=== PATIENT | male | born 1960 | race Caucasian/White ===

== ENCOUNTER 2017-03-19 20:21 | Emergency (ER) | payer OTHER ==
[~2017-03-19] VITALS: Ht 177.8 cm; Wt 63.5 kg
[~2017-03-19 20:21] MED LIST: ATOR20TA50; CARI-277; LORA-655; MIRT30TA; NOR10T; QUET300T14; TRAZ100T2; TRIA25TA3
[2017-03-19 21:02] LABS: Basophils # (auto) 0 uL; Basophils % (auto) 0.7 % (0.0-2.0); Eosinophils # (auto) 0.1 uL; Eosinophils % (auto) 1.6 % (0.0-7.0); Hematocrit 28.4 % (41.0-53.0); Lymphocytes # (auto) 1.3 uL; Lymphocytes % (auto) 21.2 % (10.0-50.0); Mean Corpuscular Hemoglobin 27.9 pg (28.0-32.0); Mean Corpuscular Hgb Conc. 31.7 g/dL (32.0-36.0); Mean Platelet Volume 7.4 fL (6.9-10.8); Monocytes # (auto) 0.4 uL; Monocytes % (auto) 6.6 % (0.0-12.0); Neutrophils # (auto) 4.1 uL; Neutrophils % (auto) 69.9 % (37.0-80.0); Platelet Count (auto) 272 10^3/uL (140-450); Red Cell Distribution Width 19.6 % (11.8-14.3); White Blood Cell 5.9 10^3/uL (4.4-10.8)
[2017-03-19 21:16] LABS: Urine Bilirubin Negative (Negative); Urine Blood 3+ /uL (Negative); Urine Color Red (Yellow); Urine Glucose Normal (Normal); Urine Ketone Negative (Negative); Urine Nitrite Negative (Negative); Urine RBC 1993 /hpf (0 - 3); Urine Urobilinogen Normal (Negative)
[2017-03-19 21:17] LABS: BUN/Creatinine Ratio 25.8; Calcium 8.5 mg/dL (8.5-10.1); Potassium 4.3 mmol/L (3.5-5.1)
[2017-03-19 21:32] LABS: Bilirubin, Total 0.3 mg/dL (0.2-1.0)
[2017-03-19 21:52] LABS: Anisocytosis Slight; Platelet Estimate Adequate
[2017-03-19 21:53] LABS: Ovalocytes FEW; Tear Drop Cells FEW
[2017-03-20] MEDS ORDERED: HYDROcodone-ACET 5/325MG TAB PO ONE (02:00)
[2017-03-20] MEDS ORDERED: SODIUM CHLORIDE 0.9% 1,000 ML IV ONE (02:15)
[2017-03-20] MEDS ORDERED: LEVOFLOXACIN 500 MG TAB PO ONE (02:45)
[2017-03-20] MEDS ORDERED: cefTRIAXone 1GM/50ML D5W 50 ML IV ONE (02:45)
[2017-03-20 05:45] VITALS: BP 110/62
== END 2017-03-20 05:04 | disposition home or self-care (01) ==
LOC: EDUNIT# 20:21 → ER 20:21
DX: R31.9 Hematuria, unspecified (principal); R30.0 Dysuria; K59.00 Constipation, unspecified; R10.9 Unspecified abdominal pain; E78.5 Hyperlipidemia, unspecified; I10 Essential (primary) hypertension; Z79.899 Other long term (current) drug therapy; Z87.891 Personal history of nicotine dependence; Z85.46 Personal history of malignant neoplasm of prostate; Z90.49 Acquired absence of other specified parts of digestive tract
CPT/HCPCS: 36415; 74176; 80053; 81001; 85025; 96361; 96365; 99285; J7030